=== PATIENT | female | born 1985 | race Caucasian/White ===

== ENCOUNTER 2018-11-15 06:22 | Emergency (ER) | payer MEDICARE, MEDICAID ==
[~2018-11-15] VITALS: Ht 154.9 cm; Wt 52.0 kg
[~2018-11-15 06:22] MED LIST: ANTI14DR2 OT; LAMO100T2 PO; ZOL50T PO
[2018-11-15 06:31] VITALS: BP 114/73
[2018-11-15] MEDS ORDERED: NEOM10DR45 OT (07:50)
== END 2018-11-15 08:25 | disposition home or self-care (01) ==
LOC: ER 06:23
DX: O26.892 Other specified pregnancy related conditions, second trimester (principal); H60.92 Unspecified otitis externa, left ear; Z79.899 Other long term (current) drug therapy; Z56.0 Unemployment, unspecified; Z3A.18 18 weeks gestation of pregnancy
CPT/HCPCS: 99283

== ENCOUNTER 2019-12-28 19:39 | Emergency (ER) | payer MEDICARE, MEDICAID ==
[~2019-12-28] VITALS: Ht 154.9 cm; Wt 43.2 kg
[~2019-12-28 19:39] MED LIST changes: +SERT-153 PO; -ZOL50T PO
[2019-12-28 20:02] LABS: BASOPHILS % (AUTO) 0.4 % (0-1); EOSINOPHILS # (AUTO) 0.1 X10'3 (0-0.9); EOSINOPHILS % (AUTO) 0.7 % (0-6); HEMATOCRIT 44.5 % (35.0-45.0); HEMOGLOBIN 14.8 g/dl (12.0-16.0); LYMPHOCYTES # (AUTO) 2.7 X10'3 (1.1-4.8); LYMPHOCYTES % (AUTO) 32.5 % (21-51); MEAN CORPUSCULAR HEMOGLOBIN 30.5 PG (27.0-31.0); MEAN CORPUSCULAR HGB CONC 33.3 g/dL (33.0-36.5); MEAN CORPUSCULAR VOLUME 91.5 FL (78-98); MEAN PLATELET VOLUME 9.3 FL (7.4-10.4); MONOCYTES # (AUTO) 0.6 X10'3 (0-0.9); MONOCYTES % (AUTO) 6.7 % (2-12); NEUTROPHILS % (AUTO) 59.7 % (42-75); PLATELET COUNT 240 X10'3 (140-440); RED BLOOD COUNT 4.86 X10'6 (4.20-5.60); RED CELL DISTRIBUTION WIDTH 14.7 % (11.5-14.5); WHITE BLOOD COUNT 8.4 X10'3 (4.5-11.0)
[2019-12-28 20:03] LABS: CLARITY,URINE CLEAR (Clear); COLOR,URINE YELLOW (Yellow); GLUCOSE, URINE NEGATIVE (Neg); KETONES,URINE 15 mg/dl (Neg); LEUKOCYTE ESTERASE ,URINE NEGATIVE (Neg); NITRITES, URINE NEGATIVE (Neg); OCCULT BLOOD,URINE NEGATIVE (Neg); PH,URINE 6.5 (4.8-8.0); PROTEIN,URINE NEGATIVE (Neg); UROBILINOGEN,URINE 0.2 E.U/dL (0.2-1.0)
[2019-12-28 20:04] LABS: URINE HCG NEGATIVE (NEG)
--- NOTE | 2019-12-28 20:11 | NUR ---
RELIEVING RN FOR BREAK, PT IS RESTING QUIETLY ON GURPE ELL, WAITING FOR LAB RESULTS AND US,
[2019-12-28 20:14] LABS: UA COLLECTION TYPE CLN CATCH MIDSTREAM
--- NOTE | 2019-12-28 20:15 | NUR ---
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
[2019-12-28 20:17] LABS: ALANINE AMINOTRANSFERASE 16 U/L (12-78); ALBUMIN 4.2 G/DL (3.4-5.0); ALBUMIN/GLOBULIN RATIO 1.4 (1.1-1.5); ALKALINE PHOSPHATASE 101 IU/L (46-116); ANION GAP 9 (8-16); ASPARTATE AMINO TRANSFERASE 12 U/L (10-37); BILIRUBIN,TOTAL 1.3 MG/DL (0.1-1.0); BLOOD UREA NITROGEN 13 MG/DL (7-18); BUN/CREATININE RATIO 15.1 (6.6-38.0); CALCIUM 9.1 MG/DL (8.5-10.1); CHLORIDE 101 MMOL/L (99-107); CREATININE 0.86 MG/DL (0.40-0.90); GLUCOSE 85 MG/DL (70-104); POTASSIUM 3.5 MMOL/L (3.5-5.1); SODIUM 139 MMOL/L (135-145); TOTAL CARBON DIOXIDE 29.4 MMOL/L (24-32); TOTAL PROTEIN 7.1 G/DL (6.4-8.2); eGFR 75 ML/MIN
[2019-12-28] MEDS ORDERED: NAPR-56 PO (21:00)
[2019-12-28] MEDS ORDERED: ketorolac trometh inj. 60 MG/2 ML VIAL IM ONE (21:00)
[2019-12-28 21:18] VITALS: BP 120/79
== END 2019-12-28 21:17 | disposition home or self-care (01) ==
LOC: ER 19:39
DX: M54.5 Low back pain (principal); R10.84 Generalized abdominal pain; F32.9 Major depressive disorder, single episode, unspecified; Z98.890 Other specified postprocedural states; Z56.0 Unemployment, unspecified; Z79.899 Other long term (current) drug therapy
CPT/HCPCS: 36415; 76856; 80053; 81003; 81025; 85025; 96372; 99284; J1885

== ENCOUNTER 2022-01-14 19:33 | Emergency (ER) | payer MEDICARE, MEDICAID ==
[~2022-01-14] VITALS: Ht 154.9 cm; Wt 43.0 kg
[2022-01-14 20:39] VITALS: BP 130/100
[2022-01-14] MEDS ORDERED: CEPH-585 PO (22:54)
[2022-01-14] MEDS ORDERED: cephalexin 250mg capsule PO ONE (22:55)
--- NOTE | 2022-01-14 23:12 | NUR ---
PT REFUSED PO MED. PT STATED SHE DIDNT WANT TO WAIT.
== END 2022-01-14 23:13 | disposition home or self-care (01) ==
LOC: ER 20:31
DX: L03.115 Cellulitis of right lower limb (principal); F32.A Depression, unspecified; Z98.890 Other specified postprocedural states; Z56.0 Unemployment, unspecified; Z79.2 Long term (current) use of antibiotics; Z79.899 Other long term (current) drug therapy
CPT/HCPCS: 99283

== ENCOUNTER 2022-04-14 07:57 | Emergency (ER) | payer MEDICARE, MEDICAID ==
[~2022-04-14] VITALS: Ht 154.9 cm; Wt 45.5 kg
[~2022-04-14 07:57] MED LIST changes: +CEPH-585 PO
[2022-04-14 08:21] VITALS: BP 128/72
--- NOTE | 2022-04-14 09:35 | NUR ---
Pt not in room. Stated to the provider that she was unhappy about not getting antibiotics and left the department.
== END 2022-04-14 09:38 | disposition left against medical advice (07) ==
LOC: ER 07:58
DX: H65.05 Acute serous otitis media, recurrent, left ear (principal); H92.02 Otalgia, left ear; R51.9 Headache, unspecified; F32.A Depression, unspecified; Z98.890 Other specified postprocedural states; Z56.0 Unemployment, unspecified; Z79.2 Long term (current) use of antibiotics; Z79.899 Other long term (current) drug therapy
CPT/HCPCS: 99281